=== PATIENT | male | born 1940 | race African-American/Black ===

== ENCOUNTER 2017-04-14 08:31 | Inpatient (IN) | payer OTHER ==
[~2017-04-14] VITALS: Ht 170.2 cm; Wt 96.2 kg
[2017-04-14] MEDS: IPRATROPIUM/ALBUTEROL 0.5-3(2.5)MG/3ML NEB INH SCH (00:34)
[2017-04-14] MEDS ORDERED: METHYLPREDNISOLONE SOD SUCC 125 MG/2 ML VIAL IV STA (09:17)
[2017-04-14] MEDS ORDERED: ONDANSETRON HCL 4MG/2ML VIAL IV STA (09:17)
[2017-04-14] MEDS ORDERED: SODIUM CHLORIDE 0.9% 500 ML IV ONE (09:17)
[2017-04-14] MEDS ORDERED: MORPHINE SULFATE 4 MG/ML CPJ (NOT FOR IM USE) IV STA (09:17)
[2017-04-14] MEDS ORDERED: KETOROLAC 30MG/ML VIAL IV STA (09:17)
[2017-04-14] MEDS ORDERED: IPRATROPIUM/ALBUTEROL 0.5-3(2.5)MG/3ML NEB HHN ONE (09:30)
[2017-04-14] MEDS ORDERED: LEVOFLOXACIN 750MG PREMIX 150 ML IV ONE (09:30)
[2017-04-14 09:40] LABS: BASOPHILS % 0.2 % (0.0-2.0); EOSINOPHILS % 0.1 % (0.0-5.0); HEMATOCRIT. 33.8 % (42.0-52.0); LYMPHOCYTES % 11.1 % (20.0-50.0); MEAN CORPUSCULAR HEMOGLOBIN 26.8 pg (28.0-32.0); MEAN CORPUSCULAR VOLUME 82.4 fL (80.0-94.0); MEAN PLATELET VOLUME 9.8 fl (7.4-10.4); MONOCYTES % 9.1 % (2.0-8.0); NEUTROPHILS % 79.5 % (40.0-76.0); PLATELET 163 x1000/uL (130-400); RED CELL DISTRIBUTION WIDTH 14.5 % (11.6-14.6)
[2017-04-14 09:46] LABS: CHLORIDE 107 mEq/L (98-107)
[2017-04-14 09:47] LABS: INR 1.2; PARTIAL THROMBOPLASTIN TIME 28.8 sec (23.4-31.0); PROTHROMBIN TIME 12.3 sec (9.4-11.6)
[2017-04-14 09:59] LABS: CARBON DIOXIDE 24 mEq/L (21-32); CREATINE KINASE 515 IU/L (39-308)
[2017-04-14 10:00] LABS: TROPONIN I 0.44 ng/mL (0.00-0.04)
[2017-04-14 10:04] LABS: BG BASE EXCESS -4.4 mmol/L (-2.0-2.0); BG CARBOXYHEMOGLOBIN 1.2 % (0.5-1.5); BG DEOXYHEMOGLOBIN 8.9 % (0.0-5.0); BG FRACTION INSPIRED OXYGEN 50; BG HCO3 ACT 19.3 mmol/L (22.0-26.0); BG METHEMOGLOBIN 0.1 % (0.0-1.5); BG OXYHEMOGLOBIN 89.8 % (94.0-97.0); BG PCO2 30.8 mmHg (35.0-45.0); BG PH 7.414 (7.350-7.450); BG PO2 60.4 mmHg (75.0-100.0); BG SAMPLE SITE RIGHT RADIAL; BG TOTAL HEMOGLOBIN 11.3 g/dL (12.0-18.0)
[2017-04-14 15:03] VITALS: BP 132/77
[2017-04-14] MEDS ORDERED: ONDANSETRON HCL 4MG/2ML VIAL IV PRN (15:30)
[2017-04-14] MEDS ORDERED: MAGNESIUM/ALUMINUM HYDROXIDE/SIMETHICONE 30ML UDC PO PRN (15:30)
[2017-04-14] MEDS ORDERED: IPRATROPIUM/ALBUTEROL 0.5-3(2.5)MG/3ML NEB INH PRN (15:30)
[2017-04-14] MEDS ORDERED: HYDROCODONE/ACETAMINOPHEN 5/325MG TABLET PO PRN (15:30)
[2017-04-14] MEDS ORDERED: GUAIFENESIN 200MG/10ML SUGAR FREE UDC PO PRN (15:30)
[2017-04-14] MEDS ORDERED: MORPHINE SULFATE 2 MG/ML CPJ (NOT FOR IM USE) IV PRN (15:30)
[2017-04-14] MEDS ORDERED: CLONIDINE 0.1MG TABLET PO PRN (15:30)
[2017-04-14] MEDS ORDERED: DOCUSATE SODIUM 100MG CAPSULE PO PRN (15:30)
[2017-04-14] MEDS ORDERED: ACETAMINOPHEN 325MG TABLET PO PRN (15:30)
[2017-04-14] MEDS ORDERED: DEXTROSE 50% WATER 50ML SYRINGE IV PRN (15:45)
[2017-04-14 16:00] VITALS: BP 128/49
[2017-04-14] MEDS ORDERED: AMLODIPINE 5MG TABLET PO NR (16:00)
[2017-04-14] MEDS: ENOXAPARIN 40MG/0.4ML SYR SUBCUT SCH (16:06)
[2017-04-14] MEDS: BLOOD SUGAR DIAGNOSTIC STRIP TEST SCH ×2 (16:39→20:24)
[2017-04-14] MEDS: PIPERACILLIN/TAZ 3.375G PREMIX 50 ML IV SCH (16:50)
[2017-04-14] MEDS ORDERED: VANCOMYCIN 1500MG in DEXTROSE 5% WATER 250ML IV NR (17:00)
[2017-04-14] MEDS ORDERED: INSULIN DETEMIR UD 100 UNITS/ML SYR SUBCUT NR (18:30)
[2017-04-14] MEDS: INSULIN LISPRO 100 UNITS/ML SUBCUT SCH ×2 (18:44→20:40)
[2017-04-14 20:00] VITALS: BP 120/79
[2017-04-14 20:48] LABS: CLARITY URINE CLEAR (CLEAR); COLOR URINE YELLOW (YELLOW); GLUCOSE URINE 3+ (NEGATIVE); KETONES URINE NEGATIVE (NEGATIVE); LEUKOCYTE ESTERASE URINE NEGATIVE (NEGATIVE); NITRITE URINE NEGATIVE (NEGATIVE); OCCULT BLOOD URINE TRACE (NEGATIVE); PROTEIN URINE 2+ (NEGATIVE); SPECIFIC GRAVITY URINE 1.022 (1.005-1.030)
[2017-04-15] VITALS: BP 127/69
[2017-04-15 00:01] LABS: TROPONIN I 0.48 ng/mL (0.00-0.04)
[2017-04-15] MEDS: PIPERACILLIN/TAZ 3.375G PREMIX 50 ML IV SCH ×3 (00:18→17:19)
[2017-04-15 04:00] VITALS: BP 133/74
[2017-04-15 05:50] LABS: HEMOGLOBIN. 10.8 g/dL (14.0-18.0); MEAN CORPUSCULAR VOLUME 82.8 fL (80.0-94.0); MEAN PLATELET VOLUME 9.9 fl (7.4-10.4); PLATELET 157 x1000/uL (130-400); RED BLOOD CELL COUNT 3.98 mill/uL (4.7-6.1); RED CELL DISTRIBUTION WIDTH 14.3 % (11.6-14.6)
[2017-04-15] MEDS: BLOOD SUGAR DIAGNOSTIC STRIP TEST SCH ×4 (06:31→21:28)
[2017-04-15] MEDS: PANTOPRAZOLE 40MG DR TABLET PO SCH (06:35)
[2017-04-15] MEDS: INSULIN LISPRO 100 UNITS/ML SUBCUT SCH ×4 (06:37→21:55)
[2017-04-15 06:43] LABS: CARBON DIOXIDE 23 mEq/L (21-32); CHLORIDE 104 mEq/L (98-107); CREATINE KINASE 527 IU/L (39-308); LDL CHOLESTEROL 43 mg/dL (5-100)
[2017-04-15 06:54] LABS: HDL CHOLESTEROL 33 mg/dL (40-59)
[2017-04-15 08:04] LABS: TROPONIN I 0.48 ng/mL (0.00-0.04)
[2017-04-15] MEDS: IPRATROPIUM/ALBUTEROL 0.5-3(2.5)MG/3ML NEB INH SCH ×3 (08:53→19:52)
[2017-04-15 09:00] VITALS: BP 120/51
[2017-04-15] MEDS ORDERED: FUROSEMIDE 40MG/4ML VIAL IV SCH (09:00)
[2017-04-15] MEDS ORDERED: AMLODIPINE 5MG TABLET PO SCH (09:00)
[2017-04-15 09:22] LABS: BG BASE EXCESS -3.4 mmol/L (-2.0-2.0); BG CARBOXYHEMOGLOBIN 0.8 % (0.5-1.5); BG DEOXYHEMOGLOBIN 12.6 % (0.0-5.0); BG FRACTION INSPIRED OXYGEN 21; BG HCO3 ACT 20.8 mmol/L (22.0-26.0); BG OXYGEN SATURATION 87.3 % (92.0-98.5); BG OXYHEMOGLOBIN 86.6 % (94.0-97.0); BG PCO2 34.7 mmHg (35.0-45.0); BG PH 7.396 (7.350-7.450); BG PO2 52.3 mmHg (75.0-100.0); BG SAMPLE SITE RIGHT BRACHIAL; BG TOTAL HEMOGLOBIN 12.2 g/dL (12.0-18.0); BG VENT MODE ROOM AIR
[2017-04-15] MEDS: ASPIRIN 81MG EC TABLET PO SCH (09:51)
[2017-04-15] MEDS ORDERED: INSULIN DETEMIR UD 100 UNITS/ML SYR SUBCUT SCH (10:00)
[2017-04-15 12:00] VITALS: BP 128/60
[2017-04-15 12:13] LABS: PLATELET ESTIMATE NORMAL
[2017-04-15 16:00] VITALS: BP 121/61
[2017-04-15] MEDS: ENOXAPARIN 40MG/0.4ML SYR SUBCUT SCH (17:19)
[2017-04-15] MEDS ORDERED: BUSP5TAB3 PO (17:29)
[2017-04-15] MEDS ORDERED: LATA2.5D2 EACHEYE (17:35)
[2017-04-15] MEDS ORDERED: ASPI-986 PO (17:35)
[2017-04-15] MEDS ORDERED: SIMV20TA6 PO (17:35)
[2017-04-15] MEDS ORDERED: PANT40TA4 PO (17:35)
[2017-04-15] MEDS ORDERED: TIMO15DR12 EACHEYE (17:35)
[2017-04-15] MEDS ORDERED: VALS80TA2 PO (17:35)
[2017-04-15] MEDS ORDERED: CARV25TA47 PO (17:35)
[2017-04-15] MEDS ORDERED: GABA-531 PO (17:35)
[2017-04-15] MEDS ORDERED: AMLO1POW MC (17:35)
[2017-04-15] MEDS ORDERED: ALBU90AE IH (17:35)
[2017-04-15] MEDS ORDERED: VANCOMYCIN 750 MG PREMIX 150 ML IV SCH (18:00)
[2017-04-15] MEDS ORDERED: MORPHINE SULFATE 4 MG/ML CPJ (NOT FOR IM USE) IV PRN (18:15)
[2017-04-15 20:00] VITALS: BP 128/61
[2017-04-16] VITALS: BP 131/65
[2017-04-16] MEDS: IPRATROPIUM/ALBUTEROL 0.5-3(2.5)MG/3ML NEB INH SCH ×4 (01:45→21:43)
[2017-04-16] MEDS: PIPERACILLIN/TAZ 3.375G PREMIX 50 ML IV SCH ×3 (01:52→16:25)
[2017-04-16 04:00] VITALS: BP 134/72
[2017-04-16] MEDS: PANTOPRAZOLE 40MG DR TABLET PO SCH (06:17)
[2017-04-16] MEDS: BLOOD SUGAR DIAGNOSTIC STRIP TEST SCH ×4 (07:48→21:00)
[2017-04-16 08:00] VITALS: BP 157/81
[2017-04-16] MEDS: TIMOLOL MALEATE 0.5% OPHTH DROPS 5ML EACHEYE SCH (08:19)
[2017-04-16] MEDS: ASPIRIN 81MG EC TABLET PO SCH (08:20)
[2017-04-16] MEDS: INSULIN LISPRO 100 UNITS/ML SUBCUT SCH ×4 (08:21→22:00)
[2017-04-16 09:14] LABS: BASOPHILS % 0.4 % (0.0-2.0); HEMATOCRIT. 33.7 % (42.0-52.0); LYMPHOCYTES % 7.7 % (20.0-50.0); MEAN CORPUSCULAR HEMOGLOBIN 26.8 pg (28.0-32.0); MEAN CORPUSCULAR VOLUME 81.8 fL (80.0-94.0); MEAN PLATELET VOLUME 10.2 fl (7.4-10.4); MONOCYTES % 7.7 % (2.0-8.0); NEUTROPHILS % 84.2 % (40.0-76.0); PLATELET 192 x1000/uL (130-400); RED BLOOD CELL COUNT 4.13 mill/uL (4.7-6.1); RED CELL DISTRIBUTION WIDTH 14.4 % (11.6-14.6)
[2017-04-16] MEDS: AMLODIPINE 5MG TABLET PO SCH ×2 (09:30→21:43)
[2017-04-16 09:48] LABS: CARBON DIOXIDE 25 mEq/L (21-32); CHLORIDE 106 mEq/L (98-107)
[2017-04-16 10:00] LABS: TROPONIN I 0.48 ng/mL (0.00-0.04)
[2017-04-16] MEDS: INSULIN DETEMIR UD 100 UNITS/ML SYR SUBCUT SCH (11:09)
[2017-04-16] MEDS ORDERED: BISACODYL 10MG SUPP PR PRN (11:15)
[2017-04-16] MEDS ORDERED: LACTULOSE 20G/30ML UDC PO NR (11:15)
[2017-04-16 12:00] VITALS: BP 162/86
[2017-04-16] MEDS ORDERED: VANCOMYCIN 1250MG in DEXTROSE 5% WATER 250ML IV SCH (13:00)
[2017-04-16 16:00] VITALS: BP 127/64
[2017-04-16] MEDS: ENOXAPARIN 40MG/0.4ML SYR SUBCUT SCH (16:03)
[2017-04-16 19:52] VITALS: BP 137/69
[2017-04-16] MEDS: LATANOPROST 0.005% OPHTH DROPS 2.5ML EACHEYE SCH (21:43)
[2017-04-17] MEDS: PIPERACILLIN/TAZ 3.375G PREMIX 50 ML IV SCH ×3 (00:13→17:00)
[2017-04-17] MEDS: IPRATROPIUM/ALBUTEROL 0.5-3(2.5)MG/3ML NEB INH SCH ×4 (01:34→20:20)
[2017-04-17 01:53] VITALS: BP 136/69
[2017-04-17] MEDS: INSULIN LISPRO 100 UNITS/ML SUBCUT SCH ×4 (06:03→21:22)
[2017-04-17] MEDS: BLOOD SUGAR DIAGNOSTIC STRIP TEST SCH ×4 (06:03→21:00)
[2017-04-17] MEDS: PANTOPRAZOLE 40MG DR TABLET PO SCH (06:14)
[2017-04-17 06:49] LABS: HEMATOCRIT. 36.6 % (42.0-52.0); HEMOGLOBIN. 12.1 g/dL (14.0-18.0); MEAN CORPUSCULAR HEMOGLOBIN 26.9 pg (28.0-32.0); MEAN CORPUSCULAR VOLUME 81.7 fL (80.0-94.0); MEAN PLATELET VOLUME 9.5 fl (7.4-10.4); PLATELET 211 x1000/uL (130-400); RED BLOOD CELL COUNT 4.48 mill/uL (4.7-6.1); RED CELL DISTRIBUTION WIDTH 14.1 % (11.6-14.6)
[2017-04-17 08:00] VITALS: BP 149/79
[2017-04-17 08:07] LABS: TROPONIN I 0.38 ng/mL (0.00-0.04)
[2017-04-17] MEDS: AMLODIPINE 5MG TABLET PO SCH ×2 (08:40→21:21)
[2017-04-17] MEDS: ASPIRIN 81MG EC TABLET PO SCH (08:40)
[2017-04-17] MEDS: TIMOLOL MALEATE 0.5% OPHTH DROPS 5ML EACHEYE SCH (09:51)
[2017-04-17] MEDS: INSULIN DETEMIR UD 100 UNITS/ML SYR SUBCUT SCH (09:52)
[2017-04-17 10:41] LABS: PLATELET ESTIMATE NORMAL
[2017-04-17 12:00] VITALS: BP 133/71
[2017-04-17] MEDS ORDERED: VANCOMYCIN 1250MG in DEXTROSE 5% WATER 250ML IV SCH (14:00)
[2017-04-17 16:00] VITALS: BP 156/74
[2017-04-17] MEDS: ENOXAPARIN 40MG/0.4ML SYR SUBCUT SCH (16:59)
[2017-04-17 20:00] VITALS: BP 146/65
[2017-04-17 20:30] VITALS: BP 144/84
[2017-04-17] MEDS: LATANOPROST 0.005% OPHTH DROPS 2.5ML EACHEYE SCH (21:20)
[2017-04-18] VITALS: BP 144/75
[2017-04-18] MEDS: IPRATROPIUM/ALBUTEROL 0.5-3(2.5)MG/3ML NEB INH SCH ×2 (00:40→08:49)
[2017-04-18] MEDS: PIPERACILLIN/TAZ 3.375G PREMIX 50 ML IV SCH ×2 (01:36→08:30)
[2017-04-18 04:00] VITALS: BP 155/80
[2017-04-18] MEDS: BLOOD SUGAR DIAGNOSTIC STRIP TEST SCH (06:35)
[2017-04-18] MEDS: PANTOPRAZOLE 40MG DR TABLET PO SCH (06:43)
[2017-04-18] MEDS: INSULIN LISPRO 100 UNITS/ML SUBCUT SCH (06:43)
[2017-04-18 07:02] LABS: HEMOGLOBIN 12.9 g/dL (14.0-18.0); MEAN CORPUSCULAR HEMOGLOBIN 27.1 pg (28.0-32.0); MEAN CORPUSCULAR VOLUME 81.9 fL (80.0-94.0); PLATELET 201 x1000/uL (130-400); RED BLOOD CELL COUNT 4.76 mill/uL (4.7-6.1)
[2017-04-18 08:00] VITALS: BP 132/75
[2017-04-18] MEDS: ASPIRIN 81MG EC TABLET PO SCH (08:30)
[2017-04-18] MEDS: TIMOLOL MALEATE 0.5% OPHTH DROPS 5ML EACHEYE SCH (08:30)
[2017-04-18] MEDS: AMLODIPINE 5MG TABLET PO SCH (08:30)
[2017-04-18 09:52] VITALS: BP 132/75
== END 2017-04-18 11:29 | disposition home or self-care (01) | DRG 871 ==
LOC: ER 08:31 → ENRESERV 10:03 → 8WST 13:29 → EDBEDREQ 13:30
PROVIDERS: ADMIT Hospitalist; ATTEND Hospitalist
DX: A41.9 Sepsis, unspecified organism (principal); J18.9 Pneumonia, unspecified organism; J96.01 Acute respiratory failure with hypoxia; N17.9 Acute kidney failure, unspecified; I50.23 Acute on chronic systolic (congestive) heart failure; I13.0 Hypertensive heart and chronic kidney disease with heart failure and stage 1 through stage 4 chronic kidney disease, or unspecified chronic kidney disease; E11.22 Type 2 diabetes mellitus with diabetic chronic kidney disease; I31.3 Pericardial effusion (noninflammatory); E11.65 Type 2 diabetes mellitus with hyperglycemia; G47.33 Obstructive sleep apnea (adult) (pediatric); Z96.659 Presence of unspecified artificial knee joint; I49.9 Cardiac arrhythmia, unspecified; Y92.238 Other place in hospital as the place of occurrence of the external cause; H40.9 Unspecified glaucoma; H26.9 Unspecified cataract; I25.10 Atherosclerotic heart disease of native coronary artery without angina pectoris; T38.0X5A Adverse effect of glucocorticoids and synthetic analogues, initial encounter; J40 Bronchitis, not specified as acute or chronic; N18.3 Chronic kidney disease, stage 3 (moderate); Z95.5 Presence of coronary angioplasty implant and graft; Z79.4 Long term (current) use of insulin; I25.2 Old myocardial infarction; Z83.3 Family history of diabetes mellitus; Z82.5 Family history of asthma and other chronic lower respiratory diseases; Z80.9 Family history of malignant neoplasm, unspecified; Z87.01 Personal history of pneumonia (recurrent); Z79.82 Long term (current) use of aspirin
CPT/HCPCS: 36415; 36600; 71010; 71250; 76770; 80048; 80053; 80061; 80202; 81001; 82375; 82550; 82805; 82962; 83605; 83690; 83735; 83880; 84443; 84484; 85025; 85027; 85610; 85730; 87040; 87070; 87086; 87804; 93005; 93306; 93970; 94640; 96365; 96375; 99285; J1650; J1815; J1885; J1940; J1956; J2270; J2405; J2543; J2930; J3370; J7040; J7050; J7060; J7620